=== PATIENT | male | born 1985 | race Hispanic/Latino ===

== ENCOUNTER 2021-01-02 10:37 | Emergency (ER) | payer SELFPAY ==
[2021-01-02] VITALS (16 sets, daily range): BP systolic 100–126; BP diastolic 55–76; PULSE 48–81; RESP 14–22; TEMP 36.8; O2SAT 97–100
--- NOTE | ~2021-01-02 | XR_ITS ---
XR chest 2V DATE: 01/02/2021 11:03 INDICATION: Left-sided chest pain TECHNIQUE: PA and lateral views COMPARISON: None FINDINGS: Heart size is normal. No hilar or mediastinal enlargement. No pulmonary infiltrate or conso lidation, pleural effusion or pulmonary vascular congestion or pneumothorax. Mild dextroscoliosis of the thoracic spine. IMPRESSION: No active cardiopulmonary disease Reviewed, dictated and finalized at location [facility].
--- NOTE | ~2021-01-02 | CT_ITS ---
EXAMINATION: CT brain wo con DATE: 01/02/2021 11:37 INDICATION: Left paresthesia . TECHNIQUE: Computed tomography (CT) of the head was performed without intravenous contrast. The mA wa s adjusted according to patient size. Iterative reconstruction technique was employed. Exam dose: 60 5.33 mGy-cm total exam DLP. COMPARISON: None FINDINGS: No intracranial mass lesion or hemorrhage or cerebrovascular accident is detected. No midli ne shift or mass effect effect. Normal ng-white matter differentiation. Normal size of the ventricl es. No subdural or epidural hematoma. There is a 10 mm mucus retention cyst or polyp of the anterior aspect of the right sphenoid sinus. Th e included paranasal sinuses and mastoid air cells are otherwise unremarkable. No fracture or bone destruction of the cranial vault. IMPRESSION: No intracranial abnormality Reviewed, dictated and finalized at [facility]. Reviewed, dictated and finalized at location [facility]. IMPRESSION: No intracranial abnormality
--- NOTE | 2021-01-02 10:48 | ECG_ITS ---
Measurements Intervals [place] Rate: 77 P: 49 GA: 112 QRS: 54 QRSD: 101 T: 10 QT: 371 QTc: 420 Interpretive Statements SINUS RHYTHM WITH SINUS ARRHYTHMIA WITH SHORT GA INTERVAL INCOMPLETE RIGHT BUNDLE BRANCH BLOCK ST ELEVATION IN ANTEROLAT/HIGH LAT LEADS, PROBABLY EARLY REPOLARIZATION BASELINE ARTIFACT- I, III, AVL, AVF BORDERLINE ECG Electronically Signed On 01-02-2021 12:15:09 CDT by Steven Castro D.O.
[2021-01-02 10:56] LABS: Basophils Percent Auto 0.4 % (0.2-1.2); Eosinophils Absolute Auto 0.1 K/mm3 (0-0.3); Eosinophils Percent Auto 1.3 % (0-4.4); Hematocrit 45.7 % (42.0-52.0); Hemoglobin 15.4 g/dL (14.0-18.0); Immature Granulocyte Absolute 0.02 K/mm3 (0.00-0.031); Immature Granulocyte Percent A 0.2 % (0-0.5); Lymphocytes Percent Auto 39.6 % (18.3-44.2); Mean Corpuscular HGB Conc 33.7 g/dl (32-36); Mean Corpuscular Volume 89.1 fl (80-100); Mean Platelet Volume 11.5 fl (7.4-10.4); Monocytes Absolute Auto 0.7 K/mm3 (0.1-0.6); Monocytes Percent Auto 8.3 % (2.6-8.5); Neutrophils Absolute Auto 4.2 K/mm3 (1.3-6.7); Neutrophils Percent Auto 50.2 % (45.5-73.1); Platelet Count Result 189 k/mm3 (150-375); Red Blood Count 5.13 M/mm3 (4.6-6.20); Red Cell Distribution Width 13.2 % (11.5-14.5); White Blood Count 8.3 K/mm3 (4.5-10.0)
[2021-01-02 11:06] LABS: Anion Gap 8 mmol/L (8-16); Blood Urea Nitrogen 11 mg/dL (9-20); Calcium 9.7 mg/dL (8.4-10.2); Carbon Dioxide 28 mmol/L (22-30); Chloride 104 mmol/L (98-107); Estimated CRCL calculation 134 ml/min; Estimated Glomerular Filt Rate > 60; Glucose 96 mg/dL (65-110); Potassium 3.9 mmol/L (3.4-5.0); Sodium 140 mmol/L (137-145)
[2021-01-02 11:10] LABS: INR 0.9; Prothrombin Time 12.1 Seconds (11.1-14.7)
[2021-01-02 11:11] LABS: Partial Thromboplastin Time 27.9 SECONDS (22.3-36.8)
[2021-01-02 11:18] LABS: Troponin I < 0.012 ng/mL (0.000-0.034)
--- NOTE | 2021-01-02 11:25 | ED.CHESTPAIN ---
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 Patient reports he has been having intermittent episode headaches that last only minutes. He also reports intermittent episodes of numbness to left side without weakness. HE also reports left anterior chest with numb feeling. He reports he has these symptoms when he is stressed or anxious. He denies headache, blurred vision, focal weakness, numbnesss currently. He reports 3 hours ago he felt this numbness. He reports he has numb feeling to his anterior chest currently. He denies history stroke or heart disease. He admits to using cocaine approximately 1 month ago. Related Data Allergies Allergy/AdvReac Type Severity Reaction Status Date / Time No Known Allergies Allergy Verified 01/02/21 10:54 Review of Systems Review of Systems: All systems reviewed & are unremarkable except as noted in HPI and below Constitutional: Constitutional: Denies chills and Denies fever(s) Eyes: Eyes: Denies change in vision Cardiovascular: Cardiovascular: Reports chest pain, Reports rapid heart rate and Denies radiating jaw, neck or arm pain Respiratory: Respiratory: Denies cough and Denies dyspnea Gastrointestinal: Gastrointestinal: Denies abdominal pain, Denies diarrhea, Denies nausea and Denies vomiting Neurologic: Reports headache(s) and Reports numbness Psychiatric: Psychiatric: Reports anxiety PMFSH Past Medical History Medical History (Updated 01/02/21 @ 15:19 by Amber Springer MD) Diabetes mellitus Hypertension Social History Social History (Updated 01/02/21 @ 11:26 by Amber Springer MD) Smoking status: Current every day smoker Alcohol intake: current Drinks per week: 15 Substance use: current Substance use type: crack/cocaine and heroin Exam Narrative: GENERAL: Well-appearing, well-nourished, and in no acute distress. HEAD: Normocephalic, atraumatic EYES: PERRLA and EOMI, conjunctiva clear without discharge EARS: TM's clear bilaterally without erythema or dullness THROAT:Mucous membranes moist, Oropharynx normal without erythema, exudate, peritonsillar swelling or fluctuance NECK: Supple, without lymphadenopathy or mass RESPIRATORY: No respiratory distress, Airway patent, Respirations non-labored, Clear to auscultation without rales, rhonchi or wheeze HEART: Regular rate and rhythm. No murmur heard. Normal peripheral pulses. ABDOMEN: Soft, nontender, nondistended, normal active bowel sounds. No masses. No rebound or guarding, No organomegaly. EXTREMITIES: No edema, normal strength with full range of motion. SKIN: Warm, dry, normal color without rash NEURO: Alert and oriented x3. CN 2-12 grossly intact. No focal deficits. PSYCH: Normal mood and affect. Neuro: General: moves all extremities, no focal motor deficits and CN's II-XI intact bilaterally Cranial nerves: Yes Nystagmus not present Gait exam (Neuro): Normal gait present Motor exam (neuro): 5/5 motor strength present throughout Sensory Exam: normal sensation Coordination: [id number] test normal and [id number] test normal Extrem: General: normal to inspection Psych: Mental Status: mental status grossly normal Affect: normal affect Course Reevaluation(s) Reevaluation #1: PAtient has no symptoms and his symptoms seem to be anxiety related. He will follow up with PCP. Examination is normal Date: 01/02/21 Time: 15:18 Vital Signs Vital signs: Vital Signs Temperature 98.3 F 01/02/21 10:43 Pulse Rate 81 01/02/21 10:43 Respiratory Rate 22 H 01/02/21 10:43 Blood Pressure 126/76 01/02/21 10:43 Pulse Oximetry 100 10
--- NOTE | 2021-01-02 11:29 | PC.NURSE ---
Kelley, Carol, MARINE and Chitra Levy
[2021-01-02 11:39] LABS: Creatine Kinase 109 U/L (55-170)
[2021-01-02 12:02] LABS: D Dimer < 0.22 ug/mL (<0.48)
[2021-01-02 13:22] LABS: Barbiturate Screen Urine Negative (Negative); Benzodiazepines Screen Urine Negative (Negative)
[2021-01-02 13:29] LABS: Amphetamine Screen Urine Negative (Negative)
[2021-01-02 13:58] LABS: Cannabinoid Screen Urine Negative (Negative); Methadone Screen Urine Negative (Negative); Opiate Screen Urine Negative (Negative); Phencyclidine Screen Urine Negative (Negative)
[2021-01-02 14:57] LABS: Troponin I < 0.012 ng/mL (0.000-0.034)
== END 2021-01-02 16:00 | disposition home or self-care (01) ==
PROVIDERS: Emergency Provider General Practice; PCP Registered Nurse
DX: R07.89 Other chest pain (principal); R20.2 Paresthesia of skin; E11.9 Type 2 diabetes mellitus without complications; I10 Essential (primary) hypertension; F17.200 Nicotine dependence, unspecified, uncomplicated; I45.10 Unspecified right bundle-branch block; R94.31 Abnormal electrocardiogram [ECG] [EKG]
CPT/HCPCS: 36415; 70450; 71046; 80048; 80307; 82550; 84484; 85025; 85380; 85610; 85730; 93005; 99284